=== PATIENT | male | born 1965 | race Caucasian/White ===

== ENCOUNTER 2021-12-16 15:26 | Emergency (ER) | payer BC, SELFPAY ==
[2021-12-16] VITALS (8 sets, daily range): BP systolic 162–168; BP diastolic 84–98; PULSE 84–94; RESP 18; TEMP 36.8; O2SAT 95–98
--- NOTE | 2021-12-16 15:30 | DI.RAD_ITS ---
Exam(s) XR HIP RT COMPLETE AP PELVIS EXAM: XR HIP RT COMPLETE AP PELVIS INDICATION: fall while skiing, anterior hip/pelvis pain. COMPARISON: No exams were available for comparison TECHNIQUE: 2D digital imaging was performed. FINDINGS: There is nondisplaced fracture seen in the right inferior pubic ramus. No additional fractures are i dentified. SI joints and pubic symphysis appear intact. Mild degenerative changes are seen in the i n the hips. IMPRESSION: nondisplaced fracture right inferior pubic ramus. DATA REPOSITORY: RADIATION DOSE DELIVERED:
--- NOTE | 2021-12-16 15:40 | W.ED.GENAD ---
Discharge Plan Disposition Patient Disposition: HOME Condition: Stable Discharge Details Clinical Impression: Closed pelvic fracture Primary Care Provider: Unknown,Unknown ED Provider: Jacqueline Gayle Home Meds and New Rx's Prescriptions: New oxycodone-acetaminophen [Percocet] 5-325 mg tablet 1 tab PO Q8H PRNQty: 7 RF: 0 Continued atorvastatin 10 mg Tablet 10 mg PO QHS RF: 0 diclofenac sodium 75 mg Tablet,Delayed Release (Dr/Ec) 75 mg PO BID RF: 0 duloxetine 20 mg Capsule,Delayed Release(Dr/Ec) 20 mg PO BID RF: 0 Discharge Instructions Additional Instructions: please follow-up with orthopedist on Saturday you will likely need PT Weightbearing as tolerated Ibuprofen 600 mg every 8 hours with food Do not combine the with the diclofenac, take the diclofenac or ibuprofen You may also take Percocet as needed, this medication is addictive, you should use it sparingly and only as needed for pain uncontrolled with diclofenac or ibuprofen Use your crutches with ambulation Please be reassessed with new or worsening pain Discharge Data Discharge Date/Time-TO BE ENTERED AT DEPARTURE: 12/16/21 19:10 Medical Decision Making <Candido Marvin NP - Last Filed: 12/17/21 08:41> Patient presenting to the emergency department for chief complaint of ski injury. Patient states while skiing he had a fall landing on his right hip. He does state that he was helmeted and did strike his head but had no loss of consciousness and denies any neurological symptoms along with neck pain or back pain. Physical exam shows exquisite tenderness to anterior right hip/pelvis and patient is nonweightbearing. Exam is otherwise unremarkable. Plan to start with plain film imaging of the right hip and pelvis but CT imaging may be needed given patient's nonweightbearing and tenderness. Will give p.o. medications after discussion with patient about IV meds versus p.o. and him requesting p.o. at this time which I feel is reasonable. <Chalo Chapman MD - Last Filed: 12/20/21 22:05> Patient seen, examined, and discussed with NIKOLE Marvin and MAINOR Gayle. I agree with treatment plan as discussed/documented. <MAINOR Red - Last Filed: 12/16/21 20:54> Care was accepted in transition from NIKOLE Stone This signout was pending x-ray On x-ray, patient has an inferior pubic rami fracture on the right , per my interpretation Given mechanism of action, CT abdomen and pelvis was ordered and diagnostic labs Both diagnostic lab and CT scan of abdomen and pelvis were reviewed, positive for inferior pubic rami fracture on the right, this is a stable fracture after discussion with Dr. Lr, orthopedist on-call and patient may weight-bear as tolerated Supplied with crutches A small amount of [place], risk of addiction discussed, consent obtained Patient resides in [place], he was supplied with a disc with CT images of for his orthopedist at home All questions were answered to the best my ability and return precautions were discussed and understanding Medical Records Medical records reviewed: Yes I reviewed the patient's medical records. Lab Data Lab results reviewed: Yes I reviewed the patient's lab results. HPI <Candido Marvin NP - Last Filed: 12/17/21 08:41> General Mode of arrival: wheelchair. Date/Time Provider Initiated Documentation: 12/16/21 15:38. Limitations to Documentation: no limitations. Information obtained by: patient. History of Present Illness 56 year old M presents to the emergency department with the chief complaint of skiing injury with fall on Right hip, described as moderate, with intensity rated at 8. Quality is described as sharp, and is localized to the right and lower extremity. Patient reports no radiation. Patient started experiencing this hour(s) (4) and it has been constant. No relieving factors improve symptom(s), Movement worsens symptoms . Patient notes no other symptoms.. Patient did receive the following treatments prior to arrival, none Related Data Home Medications Medication Instructions Recorded Confirmed atorvastatin 10 mg PO QHS 12/16/21 12/16/21 diclofenac sodium 75 mg PO BID 12/16/21 12/16/21 duloxetine 20 mg PO BID 12/16/21 12/16/21 oxycodone-acetaminophen [Percocet] 1 tab PO Q8H PRN #7 tab 12/16/21 Previous Rx's Medication Instructions Recorded oxycodone-acetaminophen [Percocet] 1 tab PO Q8H PRN #7 tab 12/16/21 Allergies Allergy/AdvReac Type Severity Reaction Status Date / Time No Known Allergies Allergy Unverified 12/16/21 15:37 General Stated Complaint: Trauma RACHEL: 3 Review of Systems <Candido Marvin NP - Last Filed: 12/17/21 08:41> ENT Ears, Nose, Mouth, and Throat: Denies neck pain Cardiovascular Cardiovascular: Denies chest pain, Denies syncope and Denies dyspnea Respiratory Respiratory: Denies dyspnea Gastrointestinal Gastrointestinal: Denies abdominal pain Musculoskeletal Musculoskeletal: Reports as per HPI, Denies back pain, Denies neck pain, Denies numbness and Denies tingling Integumentary/Breasts Skin/Breast: Denies rash, Denies sores and Denies wounds Neurologic Neurologic: Denies syncope, Denies numbness and Denies tingling PFSH <Candido Marvin NP - Last Filed: 12/17/21 08:41> All Active Problems (Updated 12/16/21 @ 18:31 by MAINOR Red) Closed pelvic fracture (Acute) Social History Smoking/Tobacco Use Status: Never Smoking risk assessment performed?: Yes Alcohol Intake: current Alcohol Intake frequency: holidays/special occasions only Alcohol type: wine Drug use: Never Substance use type: does not use Do you feel safe at home: Yes Do you feel safe in your relationship?: Yes Exam <Candido Marvin NP - Last Filed: 12/17/21 08:41> Const General: cooperative, no acute distress and not ill appearing Orientation: alert, awake and oriented x3 HENMT Head: atraumatic Resp Effort & Inspection: normal respiratory effort, able to speak in complete sentences and no respiratory distress Cardio Rate: regular rate Rhythm: regular rhythm Heart Sounds: S1 normal and S2 normal Pulses: dorsalis pedis present Back/Spine/Pelvis Back: No back tenderness Cervical Spine: No pain with cervical ROM and No cervical spinal tenderness Thoracic/Lumbar Spine: No thoracic spinal tenderness and No lumbar spinal tenderness Pelvis: other (Right anterior pelvic pain with AP compression) Skin General skin exam: no rashes or lesions noted Neuro General: patient alert, patient awake, patient oriented x3, moves all extremities and no focal motor deficits Sensory Exam: no sensory deficits noted Extrem Right lower extremity: hip/thigh Details: tenderness Location: of the hip Location: laterally and anterolaterally and of the proximal upper leg and other (Nonweightbearing); no crepitus and knee Details: normal to inspection; no tenderness Course <Candido Marvin NP - Last Filed: 12/17/21 08:41> Vital Signs Vital signs: Vital Signs Temperature 36.8 C 12/16/21 15:33 Pulse 94 H 12/16/21 15:33 Respiratory Rate 18 12/16/21 15:33 Blood Pressure 164/84 H 12/16/21 15:33 Pulse Oximetry 98 12/16/21 15:33 Temperature 36.8 C 12/16/21 15:33 Temperature Source Temporal Artery Scan 12/16/21 15:33 Pulse 94 H 12/16/21 15:33 Respiratory Rate 18 12/16/21 15:33 Blood Pressure 164/84 H 12/16/21 15:33 Blood Pressure Position Sitting 12/16/21 15:33 Pulse Oximetry 98 12/16/21 15:33 Oxygen Delivery Method Room Air 12/16/21 15:33 Oxygen Flow Rate 0 12/16/21 15:33 Pain Level 8 12/16/21 15:33 Sign Out <Candido Marvin NP - Last Filed: 12/17/21 08:41> Sign Out Data: Sign Out Comment: Patient pending radiological imaging for fall with injury to right hip/pelvis. Last updated by Candido Marvin NP at 12/16/21 15:49
[2021-12-16] MEDS: HYDROcodone 5/Acetaminophen 325 TAB PO (15:52)
[2021-12-16] MEDS: Ondansetron O.D.T. 4 MG TABEF PO (15:53)
--- NOTE | 2021-12-16 16:15 | DI.CT_ITS ---
Exam(s) CT ABDOMEN PELVIS W EXAM: CT ABDOMEN PELVIS W CLINICAL HISTORY: pelvic pain, suspect inferior pubic ramus fracture. TECHNIQUE: Imaging Protocol: Axial computed tomography images with coronal and sagittal reformatted images were created and reviewed CONTRAST MATERIAL: Intravenous: Omnipaque 350 Contrast volume:100 ml Oral: no COMPARISON: No exams were available for comparison FINDINGS: ABDOMEN: Lung Bases: Normal where visualized. Liver: Normal density. No measurable mass. Gallbladder and biliary tract: No radiodense calculus or dilation. Pancreas: Normal density, no abnormal calcifications or inflammatory process. Spleen: Normal. Kidneys: Normal size, contour and axis. No radiodense stones or obstructive uropathy. No masses seen. Circumaortic left renal vein. Adrenal glands: No masses seen. Abdominal Aorta: Abdominal portion non-dilated. PELVIS: Bladder: No gross wall thickening. No calculi.No focal mass. Bowel: No obstruction or bowel wall thickening. Peritoneal cavity: No ascites, collection or mesenter ic inflammatory response. Bones: Acute nondisplaced fracture on right inferior pubic ramus. No significant surrounding hematom a. No additional fractures. 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 Degenerative disc changes and facet degenerative changes. Reproductive organs: Within normal limits. Lymph nodes: Unremarkable. Impression: Nondisplaced fracture right inferior pubic ramus.. RADIATION DOSE DELIVERED: 940.2mGy.cm Total DLP DATA REPOSITORY: All CT scans at this facility are submitted to the National Radiology Data Registry (NRDR) Dose Index Registry (DIR) with the [employer] (ACR). RADIATION OPTIMIZATION: All CT scans at this facility use at least one of these dose optimization te chniques: automated exposure control; mA and/or kV adjustment per patient size (includes targeted exa ms where dose is matched to clinical indication); or iterative reconstruction.
--- NOTE | 2021-12-16 16:40 | DI.VRAD_ITS ---
PROCEDURE INFORMATION: Exam: XR Right Hip Exam date and time: 12/16/2021 3:41 PM Age: 56 years old Clinical indication: Other: Fall skiing, right hip pain TECHNIQUE: Imaging protocol: XR Right hip. Views: 2 or 3 views hip with pelvis when performed. COMPARISON: No relevant prior studies available. FINDINGS: Bones/joints: Lucency through the right inferior pubic ramus consistent with comminuted minimally displaced fracture fracture. Recommend CT if fracture through the superior pubic ramus is suspected . Degenerative changes in both hips Soft tissues: Unremarkable. IMPRESSION: Lucency through the right inferior pubic ramus consistent with comminuted minimally displaced fracture fracture. Recommend CT if fracture through the superior pubic ramus is suspected . Dictated and Authenticated by: Li Rodrigues MD. Ordering:NEO Rey MD
[2021-12-16] MEDS: Normal Saline 1,000 ML 1000 ML IV (16:47)
[2021-12-16 16:50] LABS: Abs Immature Grans 0.05 10^3/uL (0.0-0.06); Absolute Basophil Count 0.03 10^3/uL (0.0-0.2); Absolute Eosinophil Count 0.17 10^3/uL (0.0-0.7); Absolute Lymphocyte Count 1.94 10^3/uL (1.2-3.4); Absolute Monocyte Count 0.79 10^3/uL (0.1-0.8); Absolute Neutrophil Count 7.35 10^3/uL (1.2-6.7); Basophils % 0.3; Eosinophils % 1.6; HCT 38.9 % (40.0-50.0); HGB 12.2 g/dL (13.5-17.5); Immature Grans % 0.5; Lymphocytes % 18.8; MCH 29.2 pg (27.0-33.0); MCHC 31.4 % (32.0-36.0); MCV 93.1 fL (80-95); MPV 9.8 fL (8.0-11.0); Monocytes % 7.6; Neutrophils % 71.2; Nucleated RBC 0 %; Platelet Count 277 10^3/uL (130-400); RBC 4.18 10^6/uL (4.36-5.78); RDW 12.7 % (11.8-14.1); RDW-SD 43.6 fL; WBC 10.33 10^3/uL (4.4-10.8)
[2021-12-16] MEDS: fentaNYL 100 MCG/2 ML VIAL 50 MCG IVP ×2 (16:59→18:28)
[2021-12-16 17:06] LABS: ALT 51 U/L (16-63); AST 29 U/L (15-37); Albumin 3.8 g/dL (3.4-5.0); Alkaline Phosphatase 82 U/L (46-116); Anion Gap 7.1 mmol/L (3-11); BUN 25 mg/dL (7-18); Bilirubin, Total 0.5 mg/dL (0.2-1.0); CO2 27.9 mmol/L (21.0-32.0); CREATININE 0.9 mg/dL (0.70-1.30); Calcium 8.4 mg/dL (8.5-10.1); Chloride 105 mmol/L (98-107); Glucose 112 mg/dL (74-106); Lipase 112 U/L (73-393); Potassium 3.7 mmol/L (3.5-5.1); Sodium 140 mmol/L (136-145); Total Protein 7.1 g/dL (6.4-8.2)
--- NOTE | 2021-12-16 17:15 | DI.RAD_ITS ---
Exam(s) XR CHEST 2V PA LATERAL EXAM: XR CHEST 2V PA LATERAL CLINICAL HISTORY: fall TECHNIQUE: 2D digital imaging was performed. COMPARISON: No exams were available for comparison FINDINGS: MEDIASTINUM: Normal. HEART: Mildly enlarged. PULMONARY VASCULATURE: Normal. LUNGS: Clear. PLEURAL SPACE: No pleural effusion or pneumothorax. BONE:Hardware distal left clavicle. IMPRESSION: No acute abnormality. DATA REPOSITORY: RADIATION DOSE DELIVERED:
[2021-12-16] MEDS: Omnipaque 350 MG/ML 100 ML BTL IJ (17:24)
[2021-12-16 17:49] LABS: Bilirubin Negative (Negative); Blood Negative (Negative); Clarity Clear (Clear); Glucose Negative (Negative); Ketones Negative (Negative); Leukocyte Esterase Negative (Negative); Nitrite Negative (Negative); Specific Gravity 1.025 (1.005-1.025); Urobilinogen 0.2 EU/dL (Up TO 0.2)
--- NOTE | 2021-12-16 18:05 | DI.VRAD_ITS ---
PROCEDURE INFORMATION: Exam: CT Abdomen And Pelvis With Contrast Exam date and time: 12/16/2021 4:28 PM Age: 56 years old Clinical indication: Other: Pelvic pain, suspect inferior pubic ramus fracture TECHNIQUE: Imaging protocol: Computed tomography of the abdomen and pelvis with contrast. Contrast material: 350; Contrast volume: 100 ml; Contrast route: INTRAVENOUS (IV); COMPARISON: CR XR HIP RT COMPLETE AP PELVIS 12/16/2021 4:05 PM FINDINGS: Lung base: There is minimal right basilar subpleural reticulation. Airways are patent. Distal mediastinum: Heart size is normal. No pericardial effusion or thickening. Distal esophagus is normal Liver: Unremarkable. No hepatic mass or cyst. Gallbladder and bile ducts: Status post cholecystectomy. No intra or extrahepatic ductal dilatation. Pancreas: Unremarkable. No pancreatic ductal dilatation. Spleen: No splenomegaly. Adrenal glands: Unremarkable. Kidneys and ureters: No nephrolith, hydronephrosis or renal mass/cyst. The ureters are normal in course, dimension and are without evidence of filling defects. Stomach and bowel: The stomach is mildly distended with enteric content. Nonobstructive bowel gas pattern present. No mucosal/bowel wall thickening. Appendix: No right lower quadrant inflammatory change. The appendix is not definitively seen. Intraperitoneal space: No free air or significant free fluid. Vasculature: No aneurysm. IVC is unremarkable. Lymph nodes: No lymphadenopathy by size criteria. Urinary bladder: Unremarkable. Reproductive: Single calcification is seen within the normal size prostate. Bones/joints: There is of mildly displaced fracture of the right inferior pubic ramus, series 4, image 86 and series 6, image 65. There is slight grade 1 anterolisthesis of L5 on S1 with postsurgical changes. There is an ill-defined sclerotic region within the anterior L2 vertebral body. Soft tissues: Unremarkable. IMPRESSION: Mildly displaced fracture of the right inferior pubic ramus. Dictated and Authenticated by: Shorty Ac MD. Ordering:MIMA Phillips MD
--- NOTE | 2021-12-16 18:47 | DI.VRAD_ITS ---
PROCEDURE INFORMATION: Exam: XR Chest Exam date and time: 12/16/2021 5:27 PM Age: 56 years old Clinical indication: Other: Fall TECHNIQUE: Imaging protocol: XR of the chest. Views: 2 views. COMPARISON: CT ABDOMEN PELVIS W 12/16/2021 5:18 PM FINDINGS: Lungs: The lungs are well aerated without infiltrate. Pleural spaces: No pleural effusion or pneumothorax. Heart/Mediastinum: Heart size is mildly enlarged. There is a left descending thoracic aorta and midline trachea. Transverse dimension of the mediastinum is widened to 82 mm likely due to adjacent pericardiac fat pads. Bones/joints: ORIF of the distal left clavicular fracture noted with single buttress plate and 7 screws. Also seen is likely degenerative change at the distal tip of the left 1st rib. IMPRESSION: 1. No acute cardiopulmonary disease. 2. Cardiomegaly. Dictated and Authenticated by: Shorty Ac MD. Ordering:MIMA Phillips MD
== END 2021-12-16 19:10 | disposition home or self-care (01) ==
PROVIDERS: Emergency Provider Physician Assistant
DX: S32.591A Other specified fracture of right pubis, initial encounter for closed fracture (principal); V00.321A Fall from snow-skis, initial encounter
CPT/HCPCS: 36415; 80053; 83690; 86850; 86900; 86901; 96361; 96374; 96376; 99285; 71046; 73502; 74177; 81003; 85025; 99284; J3010; J3490